=== PATIENT | male | born 1950 | race African-American/Black ===

== ENCOUNTER 2016-11-02 10:11 | Outpatient (RCR) | payer OTHER | END 2016-11-06 | disposition home or self-care (01) | LOC: PTY 10:11 | DX: M25.512 Pain in left shoulder (principal) | CPT/HCPCS: 97110; 97161; G0283 ==

== ENCOUNTER 2016-12-06 14:00 | Outpatient (RCR) | payer OTHER | END 2016-12-07 | disposition home or self-care (01) | LOC: PTY 14:00 | DX: M25.512 Pain in left shoulder (principal) | CPT/HCPCS: 97035; 97110; 97140; G0283 ==

== ENCOUNTER 2016-12-16 15:14 | Outpatient (RCR) | payer OTHER | END 2017-01-06 | disposition home or self-care (01) | LOC: PTY 15:14 | DX: M25.512 Pain in left shoulder (principal) ==

== ENCOUNTER 2017-07-14 14:30 | Outpatient (RCR) | payer OTHER | END 2017-08-06 | disposition home or self-care (01) | LOC: PTY 14:30 | PROVIDERS: ATTEND Internal Medicine | DX: M54.31 Sciatica, right side (principal) ==